=== PATIENT | female | born 1940 | race Caucasian/White ===

== ENCOUNTER → 2018-01-02 | Outpatient (CLI) | payer OTHER ==
[2018-01-02 16:35] LABS: HEMATOCRIT 40.2 % (37.0-47.0); HEMOGLOBIN 13.1 gm/dL (12.0-15.0); MCH 29.2 pg (26.0-34.0); MCHC 32.6 g/dL (28.0-37.0); MCV 89.4 fL (80.0-100.0); RBC 4.5 mil/uL (4.20-5.00); RDW 16.5 % (10.5-14.5); WBC 9.6 thou/uL (4.0-11.0)
[2018-01-02 16:45] LABS: CALCIUM 8.2 mg/dL (8.5-10.1); CREATININE 1.4 mg/dL (0.6-1.0); POTASSIUM 4.5 mmol/L (3.5-5.1)
[2018-01-02 16:50] LABS: APTT 29.9 Seconds (24.5-32.8); INR 1.2; PROTIME 12.4 Seconds (9.3-11.4)
== END ==
LOC: RAD 14:49
PROVIDERS: Internal Medicine Pulmonary Disease
DX: J44.9 Chronic obstructive pulmonary disease, unspecified (principal); J90 Pleural effusion, not elsewhere classified

== ENCOUNTER → 2018-01-03 | Outpatient (CLI) | payer OTHER ==
--- NOTE | ~2018-01-03 | PATH ---
[facility] [address] [place] [address] PATHOLOGY RPT PROCEDURE Name: ILA WHITLOCK Room #: REG GENE Rivas.#: [id number] Admission: 01/03/18 Date of : 40 Discharge: Report #: [id number] Path Case #: [id number] Note [facility] Accession Number: [id number] TESTS RESULT FLAG UNITS REF RANGE LAB Clinician Provided Cytology Information No. of containers..01 Other (Miscellaneous) Source: RIGHT PLEURAL FLUID DIAGNOSIS: 02 RIGHT PLEURAL FLUID NEGATIVE FOR MALIGNANT CELLS. MESOTHELIAL CELLS ARE PRESENT. THIS INTERPRETATION INCLUDES EVALUATION OF A CELL BLOCK. Signed out by: 02 Gage Perrin MD, Pathologist NPI- [id number] Performed by: 01 David Day, Camera Operator ([facility]) Gross description: 01 17ML, YELLOW, CLEAR /LCS FLAG LEGEND: L-Low Normal,H-High Normal,LL-Alert Low,HH-Alert High <-Panic Low,>-Panic High,A-Abnormal,AA-Critical Abnormal Performed at: [address] [place] [address] Jose Antonio Bustillo MD, [address] [id number] Denise Culver MD, Specimen Comment: A courtesy copy of this report has been sent to Specimen Comment: [phone]. Specimen Comment: Report sent to Performed at: [address], [place], [place] [id number] MD Jose Antonio Bustillo MD Phone: [phone]
[2018-01-03 09:55] LABS: COLOR YELLOW; SOURCE CHEST FLUID; TOTAL VOLUME 60 mL
[2018-01-03 09:56] LABS: CLARITY CLEAR
[2018-01-03 10:09] LABS: BF NUCLEATED CELLS 247; BF RBC 410
[2018-01-03 11:21] LABS: BF NEUTROPHILS 0
[2018-01-03 11:22] LABS: BF MACROPHAGE 19
[2018-01-04 11:08] LABS: BODY FLUID ALBUMIN 0.4 g/dL (()); BODY FLUID AMYLASE 22 U/L (()); BODY FLUID GLUCOSE 65 mg/dL (()); BODY FLUID LDH 112 IU/L (()); BODY FLUID PROTEIN 1.2 g/dL (())
[2018-01-04 12:24] LABS: SOURCE RIGHT CHEST
== END | disposition home or self-care (01) ==
LOC: ULTRA 07:50
PROVIDERS: Internal Medicine Pulmonary Disease
DX: J90 Pleural effusion, not elsewhere classified (principal); R06.02 Shortness of breath